=== PATIENT | male | born 1965 | race African-American/Black ===

== ENCOUNTER 2016-11-14 20:58 | Emergency (ER) | payer OTHER ==
[~2016-11-14] VITALS: Ht 182.9 cm; Wt 95.3 kg
[2016-11-14 21:03] VITALS: BP 136/90
[2016-11-14] MEDS ORDERED: TDAP [DIPH/PERTUSSIS/TET] 0.5 ML VIAL IM ONE (21:26)
[2016-11-14] MEDS: TDAP [DIPH/PERTUSSIS/TET] 0.5 ML VIAL IM ONE (21:33)
== END 2016-11-14 22:23 | disposition home or self-care (01) ==
LOC: ER 21:01
DX: S61.052A Open bite of left thumb without damage to nail, initial encounter (principal); W54.0XXA Bitten by dog, initial encounter; Y93.89 Activity, other specified; Y92.89 Other specified places as the place of occurrence of the external cause; Y99.9 Unspecified external cause status
CPT/HCPCS: 73140; 90471; 90715; 99284; A4606; A6402; Z7610